=== PATIENT | male | born 1990 | race Caucasian/White ===

== ENCOUNTER 2024-09-01 20:35 | Emergency (ER) | payer SELFPAY ==
[~2024-09-01] VITALS: Ht 172.7 cm; Wt 71.8 kg
[2024-09-01 21:38] LABS: BASO # 0.02 K/mm3 (0.02-0.10); EOS # 0.01 K/mm3 (0.04-0.40); EOS % 0.1 % (0.0-4.0); HEMATOCRIT 38.8 % (42.0-52.0); HEMOGLOBIN 13.9 g/dL (13.5-18.0); LYMPH# 1.51 K/mm3 (1.50-4.00); MEAN CELL VOLUME 85 fl (78-100); MEAN CORPUSCULAR HEMOGLOBIN 31 pg (27-31); MEAN CORPUSCULAR HGB CONC 36 g/dL (33-37); MEAN PLATELET VOLUME 9.3 fl (7.4-10.4); MONO # 0.31 K/mm3 (0.20-0.80); NEU # 5.24 K/mm3 (1.40-6.50); PLATELET COUNT 222 K/mm3 (130-400); RED BLOOD COUNT 4.55 M/mm3 (4.20-5.60); RED CELL DISTRIBUTION WIDTH 11.7 % (11.5-14.5); WHITE BLOOD COUNT 7.1 K/mm3 (4.8-10.8)
[2024-09-01 21:50] LABS: ALBUMIN 4.2 g/dL (3.5-5.0); SODIUM 127 mmol/L (136-145)
[2024-09-01 21:51] LABS: CALCIUM 8.5 mg/dL (8.3-10.5)
[2024-09-01 21:53] LABS: GLUCOSE 102 mg/dL (75-110); TOTAL PROTEIN 6.9 g/dL (6.4-8.3)
[2024-09-01 21:54] LABS: CARBON DIOXIDE 19 mmol/L (22-29); TOTAL BILIRUBIN 0.9 mg/dL (0.2-1.2)
[2024-09-01 21:58] LABS: AST-SGOT 23 U/L (5-34)
[2024-09-01 21:58] LABS: URINE APPEARANCE CLEAR (CLEAR); URINE BILIRUBIN NEGATIVE (NEGATIVE); URINE BLOOD TRACE-INTACT (NEGATIVE); URINE COLOR YELLOW (YELLOW); URINE GLUCOSE NEGATIVE (NEGATIVE); URINE KETONE NEGATIVE (NEGATIVE); URINE LEUKOCYTE ESTERASE NEGATIVE (NEGATIVE); URINE NITRATE NEGATIVE (NEGATIVE); URINE PROTEIN(semi-quant) NEGATIVE (NEGATIVE); URINE WBC 0-1 /hpf (0-3)
[2024-09-01 21:59] LABS: ALCOHOL IN-HOUSE < 10 mg/dL (<10); ALT/SGPT 16 U/L (0-55)
[2024-09-01 22:08] LABS: TROPONIN-I < 0.030 ng/mL (0.00-0.033)
[2024-09-01 22:09] LABS: PARTIAL THROMBOPLASTIN TIME 25.7 SECONDS (21.0-32.0)
[2024-09-01 22:12] LABS: D-DIMER 0.12 mg/L FEU (0.15-0.50)
[2024-09-01] MEDS ORDERED: NS 1,000 ML IV SCH (23:30)
[2024-09-02 03:05] VITALS: BP 103/67
== END 2024-09-02 03:06 | disposition home or self-care (01) ==
LOC: ED 20:35 → EDSEX 20:35 → ED 09-02 03:06
PROVIDERS: Registered Nurse
DX: R07.89 Other chest pain (principal); E87.1 Hypo-osmolality and hyponatremia
CPT/HCPCS: J7030